=== PATIENT | female | born 1960 | race Caucasian/White ===

== ENCOUNTER 2019-08-08 08:32 | Outpatient (CLI) | payer BC, SELFPAY ==
--- NOTE | 2019-08-08 08:41 | US_ITS ---
WS: [id number] ADDITIONAL VIEWS LEFT MAMMOGRAM LEFT BREAST ULTRASOUND HISTORY: LT BREAST DENSITY COMPARISON: 06/10/2019 LEFT MAMMOGRAM: Spot compression views and true ML. Partially obscured asymmetry persists posterior to the LEFT nipple. Less well-visualized on the addit ional views. Ultrasound to follow. LEFT BREAST ULTRASOUND 2-D and color Doppler imaging submitted. Ultrasound directed to the subareolar region. There is a small cyst measuring 4 x 5 x 5 mm. There are small adjacent ducts. No suspicious mass or calcifications. US/US breast LT limited* [id number] IMPRESSION: BI-RADS: 2-Benign FOLLOW UP: 1 Year Follow-up
== END 2019-08-08 08:33 | disposition home or self-care (01) ==
LOC: RADSHAW 08:32
PROVIDERS: Family Provider Nurse Practitioner Family; PCP Nurse Practitioner Family; Visit Provider Nurse Practitioner Family
DX: N64.89 Other specified disorders of breast (principal)
CPT/HCPCS: 76642; 77065

== ENCOUNTER 2019-08-14 16:00 | Outpatient (CLI) | payer BC, SELFPAY | END 2019-08-14 16:01 | disposition home or self-care (01) | LOC: LAB 06-06 16:57 | PROVIDERS: Family Provider Nurse Practitioner Family; PCP Nurse Practitioner Family; Visit Provider Nurse Practitioner Family | DX: Z00.00 Encounter for general adult medical examination without abnormal findings (principal); N63.20 Unspecified lump in the left breast, unspecified quadrant; F17.200 Nicotine dependence, unspecified, uncomplicated; R73.01 Impaired fasting glucose; E78.00 Pure hypercholesterolemia, unspecified; Z80.3 Family history of malignant neoplasm of breast | CPT/HCPCS: 80053; 80061; 81001; 82044; 83036; 84443; 85025; 86706; 88175 ==

== ENCOUNTER 2020-01-08 15:40 | Outpatient (CLI) | payer BC, SELFPAY ==
[2020-01-08 16:43] LABS: Anion Gap 13.8 (5-19); Blood Urea Nitrogen 14 mg/dL (6-20); Calcium 9.2 mg/dL (8.5-10.5); Carbon Dioxide 27 mmol/L (22-29); Chloride 104 mmol/L (98-107); Glomerular Filtration Rate 85.9 mL/min (90-130); Glucose 105 mg/dL (65-115); Osmolality Calculated 287 mOsm/kg (285-295); Potassium 4.8 mmol/L (3.5-5.1); Sodium 140 mmol/L (136-145)
[2020-01-08 18:10] LABS: Estmated Average Glucose 146; Hemoglobin A1C 6.7 % (4.0-6.0)
== END 2020-01-08 15:41 | disposition home or self-care (01) ==
LOC: LAB 15:42
PROVIDERS: Family Provider Nurse Practitioner Family; PCP Nurse Practitioner Family; Visit Provider Nurse Practitioner Family
DX: R73.01 Impaired fasting glucose (principal)
CPT/HCPCS: 80048; 83036

== ENCOUNTER 2020-08-27 08:55 | Outpatient (CLI) | payer BC, SELFPAY ==
--- NOTE | 2020-08-27 08:59 | MM_ITS ---
WS: [id number] BILATERAL SCREENING DIGITAL MAMMOGRAM WITH CAD HISTORY: SCREENING COMPARISON: 08/08/2019 and 05/11/2019 Bilateral CC and MLO views submitted. Computer aided detection analyzed. Breast composition: There are scattered areas of fibroglandular density. No suspicious masses, microc alcifications or architectural distortion. Bilateral asymmetries and RIGHT breast calcifications are stable. MM/[place] [id number] IMPRESSION: BI-RADS: 2-Benign FOLLOW UP: 1 Year Follow-up
== END 2020-08-27 08:56 | disposition home or self-care (01) ==
LOC: RADSHAW 08:57
PROVIDERS: Family Provider Nurse Practitioner Family; PCP Nurse Practitioner Family; Visit Provider Nurse Practitioner Family
DX: Z12.31 Encounter for screening mammogram for malignant neoplasm of breast (principal)
CPT/HCPCS: 77067

== ENCOUNTER 2022-07-09 10:40 | Emergency (ER) | payer SELFPAY ==
[2022-07-09 10:46] VITALS: BP 137/87; PULSE 84; RESP 18; TEMP 36.9; O2SAT 98
--- NOTE | 2022-07-09 11:30 | XRR_ITS ---
PROCEDURE INFORMATION: Exam: XR Chest Exam date and time: 07/09/2022 1:00 PM Age: 62 years old Clinical indication: Other: AMS TECHNIQUE: Imaging protocol: Radiologic exam of the chest. Views: 1 view. COMPARISON: CT chest w con* [id number] 05/20/2019 4:30 PM FINDINGS: Lungs: Unremarkable. No consolidation. Pleural spaces: Unremarkable. No pleural effusion. No pneumothorax. Heart/Mediastinum: Unremarkable. No cardiomegaly. Bones/joints: Unremarkable. XR/XR chest 1V portable [id number] IMPRESSION: No acute findings.
--- NOTE | 2022-07-09 11:47 | ED_ITS ---
HPI - Altered Mental Status General: Chief Complaint: Altered Mental Status Stated Complaint: Back pain and memory loss Time Seen by Provider: 07/09/22 11:47 History of Present Illness: Ms. Chauhan is a 62-year-old lady with history of hypertension, hyperlipidemia presented to the emergency department due to change in mental status. Onset of symptoms was approximately 1 week ago and has had waxing waning course since that time. She reports atraumatic onset of back pain and was seen in clinic prescribed some sort of muscle relaxer. She took 2 doses and subsequently returned from her father's house with significant change in mental status. She has had word finding difficulty, forgetfulness, and at times performs bizarre actions. Course has perhaps mildly improved since stopping the medication however is not resolved. Intensity symptoms is moderate to severe. No history of similar. She does endorse pounding headache today. Denies neck pains or infectious symptoms. No history of seizures. No other specific changes in health, exacerbating, or alleviating factors identified. Onset (ago): day(s) Timing confirmed by: spouse Severity: moderate Consistency of symptoms: Waxing and Waning Context: change in medication Review of Systems General: Reports: 10 or more systems reviewed and unremarkable except in HPI and below PFSH ED PFSH: Medical History Hyperlipidemia Hypertension Surgical History H/O shoulder surgery Bilateral History of bilateral tubal ligation Family History Mother Cancer breast cancer Denies family history of Anesthesia complication Bleeding disorder Social History Smoking and tobacco status: current every day smoker cigarettes Second hand smoke exposure: No Alcohol intake: never Desire information about alcohol rehabilitation?: No Adopted: No Caregiver/support person: Yes Lives independently: Yes Household members: spouse Housing: House Marital status: service: No Current occupational status: employed 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- [employer] Current occupational exposures/hazards: No Pets and animals: No History of recent travel: Yes Leisure activites: exercise Sexually active: Yes Current gender identity: Female Meeta/Christian: Restorationist Special meeta needs: No Agree to transfusion: No Financial difficulty paying for basics: Decline to Answer Physical Exam Const: COMMON NORMALS: patient oriented x3 and alert GENERAL APPEARANCE: cooperative and well developed HENMT: COMMON NORMALS: normocephalic and atraumatic HEAD & SCALP: normocephalic and atraumatic Eye: COMMON NORMALS: conjunctivae normal CONJUNCTIVA: Yes conjunctivae normal SCLERA: sclerae normal Neck/C-Spine: COMMON NORMALS: supple GENERAL: Yes trachea midline Resp: COMMON NORMALS: clear to auscultation bilaterally EFFORT & I NSPECTION: Yes able to speak in complete sentences AUSCULTATION: clear to auscultation bilaterally Cardio: COMMON NORMALS: regular rate and regular rhythm RATE: regular rate RHYTHM: regular rhythm OTHER: Right-sided PICC GI: COMMON NORMALS: Soft to palpation PALPATION: Yes Soft to palpation and No Tenderness to palpation present (GI) Extremity: GENERAL: Yes normal exam except as noted and No edema Neuro: COMMON NORMALS: patient oriented x3, CN's II-XII intact bilaterally, moves all extremities, no focal motor deficits and no sensory deficits noted SENSORIUM/ORIENTATION: Yes alert and No Orientation impaired Psych: MEMORY/COGNITION: Yes memory grossly impaired Skin: NARRATIVE SKIN EXAM: Poor peripheral perfusion Course Vital Signs: Vital signs: Vital Signs Temperature 98.5 F 07/09/22 10:46 Pulse Rate 79 07/09/22 15:27 Respiratory Rate 16 07/09/22 15:27 Blood Pressure 182/72 07/09/22 15:27 Pulse Oximetry 97 07/09/22 15:27 Oxygen Delivery Me thod 07/09/22 10:46 MDM - Altered Mental Status Medical Decision Making 62-year-old lady presenting due to mental status change in the context of new medications. Nonfocal neurologic exam as above. Patient is nontoxic in a ppearance. EKG notable for sinus rhythm, normal axis and intervals, no STEMI. LAD similar to remote prior with no significant hematologic abnormality. Metabolic panel without acute derangement. TSH is normal and there is no evidence of urinary tract infection given squamous epithelial contamination. ABG is normal. Chest x-ray negative for lobar consolidation or pneumothorax. Given provided clinical history I believe that advanced imaging is necessary to evaluate for intracranial pathology. CT imaging negative for acute intracranial mass or hemorrhage. There is no evidence of large vessel occlusion or critical stenosis. Patient feels similar upon reassessment. Patient has altered mental status possibly as adverse effect to medication. This has been improving since she stopped taking the medication. The results of ED evaluation were discussed with the patient including possible disposition options. I did discuss and offered admission which family declined and the patient declined. I discussed prescriptions and/or symptomatic cares (if applicable) including appropriate and responsible use, followup plan, and return precautions. The patient verbalized understanding and felt safe for discharge. Medical Records I reviewed the patient's medical records. Lab Data I reviewed the patient's lab results. 07/09/22 12:12 07/09/22 13:20 Radiology Impressions Chest X-Ray 07/09/22 11:30 IMPRESSION: No acute findings. Head/Neck CTA 07/09/22 11:56 IMPRESSION: No large vessel stenosis or occlusion. IMPRESSION: No stenosis or occlusion. REFERENCES: NASCET CRITERIA. The degree of stenosis in the cervical segment of the internal carotid artery is based on NASCET criteria. Normal is no stenosis. Mild is less than 50% stenosis. Moderate is 50-69% stenosis. Severe is 70% to 99% stenosis. Total occlusion is no detectable patent lumen. Laboratory Results WBC 9.1 10^3/uL (4.0-10.0) 07/09/22 12:12 RBC 4.88 10^6/uL (4.1-5.3) 07/09/22 12:12 Hgb 15.0 g/dL (11.5-15.3) 07/09/22 12:12 Hct 46.9 % (37.0-47.0) 07/09/22 12:12 MCV 96.1 fl (81-99) 07/09/22 12:12 MCH 30.7 pg (28.0-34.0) 07/09/22 12:12 MCHC 32.0 g/dL (30.0-36.0) 07/09/22 12:12 RDW 13.4 % (12.1-15.1) 07/09/22 12:12 Plt Count 219 10^3/cmm (130-400) 07/09/22 12:12 MPV 11.6 fL (7.4-10.4) H 07/09/22 12:12 Neut % (Auto) 58.3 % 07/09/22 12:12 Lymph % (Auto) 34.0 % 07/09/22 12:12 [place] % (Auto) 6.5 % 07/09/22 12:12 Eos % (Auto) 0.5 % 07/09/22 12:12 Baso % (Auto) 0.5 % 07/09/22 12:12 Neut # (Auto) 5.32 10^3/uL (1.8-7.7) 07/09/22 12:12 Lymph # (Auto) 3.1 10^3/uL (0.8-4.8) 07/09/22 12:12 [place] # (Auto) 0.6 10^3/uL (0.2-0.9) 07/09/22 12:12 Eos # (Auto) 0.1 10^3/uL (0.0-0.8) 07/09/22 12:12 Baso # (Auto) 0.1 10^3/uL (0.0-0.1) 07/09/22 12:12 Nucleated RBC % (auto) 0 % 07/09/22 12:12 Nucleated RBCs # 0.0 /100WBC 07/09/22 12:12 Specimen Type Arterial 07/09/22 12:07 Sample Site Radial, left 07/09/22 12:07 ABG pH 7.41 (7.35-7.45) 07/09/22 12:07 ABG pCO2 39.8 mmHg (35-45) 07/09/22 12:07 ABG pO2 80.1 mmHg (80.0-100.0) 07/09/22 12:07 ABG HCO3 25.2 mmol/L (22-26) 07/09/22 12:07 ABG O2 Saturation 96.6 07/09/22 12:07 ABG Base Excess 0.5 mmol/L (-2.0-2.0) 07/09/22 12:07 Ajit Test Pos 07/09/22 12:07 A-a O2 Gradient 2.5 mmHg (5-10) L 07/09/22 12:07 Hematocrit 44.9 % (37-47) 07/09/22 12:07 Hgb O2 Saturation 93.6 % (95-100) L 07/09/22 12:07 Carboxyhemoglobin 2.7 %THgb (0.4-20.1) 07/09/22 12:07 Methemoglobin 0.4 % (0.4-1.5) 07/09/22 12:07 Total Hemoglobin 14.7 g/dL (12-16) 07/09/22 12:07 Sodium 140.0 mmol/L (131-143) 07/09/22 12:07 Potassium 4.2 mmol/L (3.5-5.0) 07/09/22 12:07 Glucose 98.0 mg/dL (70-115) 07/09/22 12:07 Ionized Calcium 1.2 mmol/L (1.1-1.4) 07/09/22 12:07 O2 Delivery Device None 07/09/22 12:07 FiO2 21.0 % 07/09/22 12:07 Salvager Helper ID [place] 07/09/22 12:07 Sodium 139 mmol/L (136-145) 07/09/22 13:20 Potassium 4.1 mmol/L (3.5-5.1) 07/09/22 13:20 Chloride 102 mmol/L (98-107) 07/09/22 13:20 Carbon Dioxide 27 mmol/L (22-29) 07/09/22 13:20 Anion Gap 14.1 (5-19) 07/09/22 13:20 BUN 16 mg/dL (8-23) 07/09/22 13:20 Creatinine 0.8 mg/dL (0.5-0.9) 07/09/22 13:20 GFR Calculation 72.9 mL/min (90-130) L 07/09/22 13:20 Glucose 102 mg/dL (65-115) 07/09/22 13:20 Calculated Osmolality 289 mOsm/kg (285-295) 07/09/22 13:20 Calcium 9.9 mg/dL (8.5-10.5) 07/09/22 13:20 Total Bilirubin 0.3 mg/dL (0.15-1.2) 07/09/22 13:20 AST 12 U/L (0-32) 07/09/22 13:20 ALT 7 U/L (0-33) 07/09/22 13:20 Alkaline Phosphatase 88 U/L (35-105) 07/09/22 13:20 Total Protein 7.9 g/dL (6.6-8.7) 07/09/22 13:20 Albumin 4.5 g/dL (3.5-5.2) 07/09/22 13:20 Globulin 3.4 g/dL (1.3-4.6) 07/09/22 13:20 TSH 2.15 uIU/mL (0.27-4.20) 07/09/22 13:20 Urine Color Yellow (Yellow) 07/09/22 12:38 Urine Appearance Clear (CLEAR) 07/09/22 12:38 Urine pH 5 (5-7) 07/09/22 12:38 Ur Specific [place] 1.020 (1.005-1.030) 07/09/22 12:38 Urine Protein Neg (Negative) 07/09/22 12:38 Urine Glucose (UA) Norm (Normal) 07/09/22 12:38 Urine Ketones 1+ (Negative) H 07/09/22 12:38 Urine Blood 2+ (Negative) H 07/09/22 12:38 Urine Nitrate Negative (Negative) 07/09/22 12:38 Urine Bilirubin Neg (Negative) 07/09/22 12:38 Urine Urobilinogen Norm mg/dL (Negative) 07/09/22 12:38 Ur Leukocyte Esterase Negative (Negative) 07/09/22 12:38 Urine RBC 0-4 /hpf (0-2) H 07/09/22 12:38 Urine WBC 5-10 /hpf (0-5) H 07/09/22 12:38 Ur Squamous Epith Cells 15-25 /hpf (0-5) H 07/09/22 12:38 Amorphous Sediment Not Reportable 07/09/22 12:38 Urine Bacteria 1+ /hpf (NONE) H 07/09/22 12:38 Discharge Plan Discharge Patient Disposition: Home Clinical Impression: Altered mental status Condition: Stable Prescriptions: No Action No Known Home Medications Discharge Orders: Discharge ED (Routine); Ordered 07/09/22 Ordered By: Daniele High Discharge Diet: Usual diet Discharge Activity: Increase activity as tolerated Patient Instructions: Altered Mental Status (ED) Activity Restrictions/Additional Instructions: Thank you for visiting the emergency department. You were seen and evaluated for altered mental status. The exact cause of this is unclear though may be related to adverse medication reaction. I would expect improvement in the next few days. Please follow-up with a primary care provider. Return to the emergency department for worsening symptoms, any new neurologic symptoms, or anything else that you are concerned about a feel needs emergency department evaluation. Coding Level of Care Code ED Glass Or Mirror Inspector for Devin Ace Exam Comprehensive
--- NOTE | 2022-07-09 11:56 | CTR_ITS ---
PROCEDURE INFORMATION: Exam: CTA Head With Contrast, Arteriography Exam date and time: 07/09/2022 1:31 PM Age: 62 years old Clinical indication: Other: Ams/confusion TECHNIQUE: Imaging protocol: Computed tomographic angiography of the head with contrast. Exam focused on the arteries. 3D rendering (Not supervised by radiologist): MIP and/or 3D reconstructed images were created by the technologist. Radiation optimization: All CT scans at this facility use at least one of these dose optimization techniques: automated exposure control; mA and/or kV adjustment per patient size (includes targeted exams where dose is matched to clinical indication); or iterative reconstruction. Contrast material: OMNI 350; Contrast volume: 100 ml; Contrast route: INTRAVENOUS (IV); COMPARISON: No relevant prior studies available. RADIATION DOSE METRICS: Total DLP (mGy-cm): 1624.24 FINDINGS: ANTERIOR CIRCULATION: Right internal carotid artery: There is scattered atherosclerotic plaque in the carotid siphons with luminal irregularity however no significant focal stenosis. Right middle cerebral artery: No occlusion or significant stenosis. No aneurysm. Right anterior cerebral artery: No occlusion or significant stenosis. No aneurysm. Left internal carotid artery: There is scattered atherosclerotic plaque in the carotid siphons with luminal irregularity however no significant focal stenosis. Left middle cerebral artery: No occlusion or significant stenosis. No aneurysm. Left anterior cerebral artery: No occlusion or significant stenosis. No aneurysm. POSTERIOR CIRCULATION: Right vertebral artery: Normal variant hypoplastic right vertebral artery terminates in the PICA. Left vertebral artery: No occlusion or significant stenosis. No aneurysm. Basilar artery: No occlusion or significant stenosis. No aneurysm. Right posterior cerebral artery: No occlusion or significant stenosis. No aneurysm. Left posterior cerebral artery: Normal variant origin. No occlusion or significant stenosis. No aneurysm. Brain: No definite mass, mass effect, or midline shift. Cerebral ventricles: No ventriculomegaly. Bones/joints: Unremarkable. No acute fracture. Soft tissues: Unremarkable. PROCEDURE INFORMATION: Exam: CTA Neck With Contrast Exam date and time: 07/09/2022 1:31 PM Age: 62 years old Clinical indication: Other: Ams/confusion TECHNIQUE: Imaging protocol: Computed tomographic angiography of the neck with contrast. 3D rendering (Not supervised by radiologist): MIP and/or 3D reconstructed images were created by the technologist. Radiation optimization: All CT scans at this facility use at least one of these dose optimization techniques: automated exposure control; mA and/or kV adjustment per patient size (includes targeted exams where dose is matched to clinical indication); or iterative reconstruction. Contrast material: OMNI 350; Contrast volume: 100 ml; Contrast route: INTRAVENOUS (IV); COMPARISON: CT chest w con* [id number] 05/20/2019 4:30 PM RADIATION DOSE METRICS: Total DLP (mGy-cm): 1624.24 FINDINGS: Right common carotid artery: No stenosis. No dissection or occlusion. Right internal carotid artery: No stenosis of the extracranial segment. No dissection or occlusion. Right external carotid artery: No occlusion or stenosis of the origin. Left common carotid artery: Minimal atherosclerotic plaque. No stenosis. No dissection or occlusion. Left internal carotid artery: No stenosis of the extracranial segment. No dissection or occlusion. Left external carotid artery: No occlusion or stenosis of the origin. Right vertebral artery: Normal variant hypoplastic right vertebral artery terminates in the PICA. Left vertebral artery: No stenosis. No dissection or occlusion. Soft tissues: Normal. No significant soft tissue swelling. Bones/joints: No acute fracture. CT/CT angio headneck* [id number] IMPRESSION: No large vessel stenosis or occlusion. IMPRESSION: No stenosis or occlusion. REFERENCES: NASCET CRITERIA. The degree of stenosis in the cervical segment of the internal carotid artery is based on NASCET criteria. Normal is no stenosis. Mild is less than 50% stenosis. Moderate is 50-69% stenosis. Severe is 70% to 99% stenosis. Total occlusion is no detectable patent lumen.
--- NOTE | 2022-07-09 12:16 | ECG_ITS ---
[facility] Test Date: 2022-07-09 Pat Name: Muna Chauhan Department: Room: Gender: Female [employer]orer [employer]: : 1960 Requested By: Daniele High Order Number: [id number] Medhat MD: Tab Perea M.D. Measurements Intervals [place] Rate: 73 P: 34 OK: 180 QRS: 20 QRSD: 90 T: 49 QT: 362 QTc: 399 Interpretive Statements SINUS RHYTHM LOW QRS VOLTAGE IN PRECORDIAL LEADS [QRS DEFLECTION < 1.0 mV IN CHEST LEADS] No previous ECG available for comparison Electronically Signed On 07-11-2022 7:51:20 SUBASSEMBLER by Tab Perea M.D. [email or web address]
[2022-07-09 12:18] LABS: ABG PCO2 39.8 mmHg (35-45); ABG PH Result 7.41 (7.35-7.45); Alveolar-Arterial Oxygen Gradi 2.5 mmHg (5-10); Arterial Blood Gas Hematocrit 44.9 % (37-47); Base Excess ABG 0.5 mmol/L (-2.0-2.0); Blood Gas Allen Test Pos; Blood Gas Operator Identificat WALCI; Blood Gas Sample Site Radial, left; Blood Gas Sample Type Arterial; Carboxyhemoglobin 2.7 %THgb (0.4-20.1); HCO3 ABG 25.2 mmol/L (22-26); HGB O2 Sat 93.6 % (95-100); Ionized Calcium Level - ABG 1.2 mmol/L (1.1-1.4); Methemoglobin 0.4 % (0.4-1.5); Oxygen Saturation ABG 96.6; PO2 ABG 80.1 mmHg (80.0-100.0); Potassium Level - ABG 4.2 mmol/L (3.5-5.0); Total Hemoglobin 14.7 g/dL (12-16)
[2022-07-09 12:32] LABS: Basophils # 0.1 10^3/uL (0.0-0.1); Basophils % 0.5 %; Eosinophils # 0.1 10^3/uL (0.0-0.8); Eosinophils % 0.5 %; Hematocrit 46.9 % (37.0-47.0); Lymphocytes # 3.1 10^3/uL (0.8-4.8); Mean Corpuscular Hemoglobin 30.7 pg (28.0-34.0); Mean Corpuscular Volume 96.1 fl (81-99); Mean Platelet Volume 11.6 fL (7.4-10.4); Monocytes # 0.6 10^3/uL (0.2-0.9); Monocytes % 6.5 %; Neutrophils # 5.32 10^3/uL (1.8-7.7); Neutrophils % 58.3 %; Nucleated Red Blood Cells % 0 %; Platelet Count 219 10^3/cmm (130-400); Red Blood Count 4.88 10^6/uL (4.1-5.3); Red Cell Distribution Width 13.4 % (12.1-15.1); White Blood Count 9.1 10^3/uL (4.0-10.0)
[2022-07-09 13:23] LABS: Alanine Aminotransferase 7 U/L (0-33); Albumin Level 4.5 g/dL (3.5-5.2); Alkaline Phosphatase 88 U/L (35-105); Aspartate Amino Transferase 12 U/L (0-32); Blood Urea Nitrogen 16 mg/dL (8-23); Calcium 9.9 mg/dL (8.5-10.5); Carbon Dioxide 27 mmol/L (22-29); Chloride 102 mmol/L (98-107); Globulin 3.4 g/dL (1.3-4.6); Glomerular Filtration Rate 72.9 mL/min (90-130); Glucose 102 mg/dL (65-115); Osmolality Calculated 289 mOsm/kg (285-295); Sodium 139 mmol/L (136-145); Thyroid Stimulating Hormone 2.15 uIU/mL (0.27-4.20); Total Bilirubin 0.3 mg/dL (0.15-1.2); Total Protein 7.9 g/dL (6.6-8.7)
[2022-07-09 13:24] LABS: Anion Gap 14.1 (5-19); Potassium 4.1 mmol/L (3.5-5.1)
[2022-07-09] MEDS: iohexol 350 mg/mL 500 mL Btl (per mL) IV (13:43)
[2022-07-09 13:59] LABS: Add Urine Culture? No; Add Urine Microscopic? YES; Bacteria Urine 1+ /hpf; Bilirubin Urine Neg (Negative); Blood Urine 2+ (Negative); Glucose Urine UA Norm (Normal); Ketones Urine 1+ (Negative); Leukocyte Esterase Urine Negative (Negative); Nitrate Urine Negative (Negative); Protein Urine Neg (Negative); RBC Urine 0-4 /hpf (0-2); Squamous Epithelial Cell Urine 15-25 /hpf (0-5); Urine Appearance Clear (CLEAR); Urine Color Yellow (Yellow); Urobilinogen Urine Norm (Negative); pH Urine 5 (5-7)
[2022-07-09 15:27] VITALS: BP 182/72; PULSE 79; RESP 16; O2SAT 97
== END 2022-07-09 15:28 | disposition home or self-care (01) ==
PROVIDERS: Physician Assistant; Emergency Provider Emergency Medicine
DX: R41.82 Altered mental status, unspecified (principal); E78.5 Hyperlipidemia, unspecified; I10 Essential (primary) hypertension; F17.210 Nicotine dependence, cigarettes, uncomplicated
CPT/HCPCS: 36415; 36600; 70496; 70498; 71045; 80051; 80053; 81001; 82330; 82805; 84443; 85025; 87040; 93005; 99285; Q9967